=== PATIENT | female | born 1935 | race African-American/Black ===

== ENCOUNTER → 2017-09-29 | Outpatient (CLI) | payer MEDICARE, OTHER ==
--- NOTE | 2017-09-29 18:44 | WOMENS IMAGING REPORT ---
EXAM DESCRIPTION: 3D SCREENING MAMMO BILAT COMPLETED DATE/TIME: 09/29/2017 9:40 am REASON FOR STUDY: ROUTINE SCREENING; Z12.31 Z12.31 ENCNTR SCREEN MAMMOGRAM FOR MALIGNANT NEOPLASM O F [place] COMPARISON: Multiple since 2008 TECHNIQUE: Standard craniocaudal and mediolateral oblique views of each breast recorded using digita l acquisition and breast tomosynthesis. LIMITATIONS: None. FINDINGS: Findings present which are benign by mammographic criteria. No suspicious masses, calcifi cations or architectural distortion. Pertinent benign findings: Old post biopsy changes bilaterally. Stable breast parenchymal and arteri al vascular calcifications bilaterally Read with the assistance of CAD. .[facility] - R2 Cenova Version 1.3 .[facility] - R2 Cenova Version 1.3 .[facility] - R2 Cenova Version 2.4 .[facility] [place] R2 Cenova Version 2.4 .[facility] - R2 Lost Charge Card Clerk Version 9.2 Benign mammographic findings may include one or more of the following: Smooth masses, popcorn/rim/co arse calcifications, asymmetries, post-procedure changes, and lesions with long-standing stability. IMPRESSION: BENIGN MAMMOGRAPHIC FINDINGS. BIRADS 2 BREAST DENSITY: c. The breasts are heterogeneously dense, which may obscure small masses. BIRAD: 2 BENIGN FINDING(S) RECOMMENDATION: RECOMMENDATION: ROUTINE SCREENING Please continue yearly bilateral screening tomosynthesis in September 2018 COMMENT: The patient has been notified of the results by letter per [place] requirements. Additional no tification policies are in place for contacting patient with suspicious or incomplete findings. Quality ID #[id number]: The [place] [employer] recommends an annual screening mammogram for women aged 40 years or over. This facility utilizes a reminder system to ensure that all patients receive reminder letters, and/or direct phone calls for appointments. This includes reminders for routine scr eening mammograms, diagnostic mammograms, or other Breast Imaging Interventions when appropriate. Th is patient will be placed in the appropriate reminder system. The [place] [employer] (ACR) has developed recommendations for screening MRI of the breast s in certain patient populations, to be used in conjunction with mammography. Breast MRI surveillanc e may be appropriate for women with more than 20% lifetime risk of developing breast cancer as deter mined by genetic testing, significant family history of the disease, or history of mantle radiation f or Hodgkins Disease. ACR Practice Guidelines 2008. DBT Technology DBT is a type of tomographic mammography. With conventional mammography, overlapping breast tissue ma y make lesions difficult to detect, even with good compression. DBT uses an x-ray tube that rotates a round the breast, taking images at different angles. These images are then combined to create thin sl ices of the breast that the radiologist can view as a 3D reconstruction. The Hologic unit can perform full-field digital mammograms (2D imaging); or DBT (3D imaging); or both, in a combination mode that quickly performs both the mammogram and the tomosynthesis scan while the breast is still compressed. PQRS 6045F: Fluoroscopic imaging is not utilized for breast tomosynthesis. TECHNICAL DOCUMENTATION: FINDING NUMBER: (1) ASSESSMENT: (1) JOB ID: [id number] [employer]- All Rights Reserved
== END ==
LOC: WI 09:11
PROVIDERS: ATTEND Internal Medicine Geriatric Medicine
DX: Z12.31 Encounter for screening mammogram for malignant neoplasm of breast (principal)
CPT/HCPCS: 77063; G0202; 77067

== ENCOUNTER 2018-07-24 11:47 | Inpatient (IN) | payer MEDICARE, OTHER ==
[2018-07-24] MEDS ORDERED: FENTANYL CITRATE INJ/PF 100 MCG/2 ML AMPUL IV ONE ×2 (11:57→15:28)
--- NOTE | 2018-07-24 11:59 | ER Document Report ---
HPI - HPI Patient complains to provider of: Left ankle injury Onset: Just prior to arrival Onset/Duration: Sudden Quality of pain: Sharp Pain Level: 5 Context: Patient states she was walking in heels on uneven pavement when the heel got stuck in the concrete causing her to trip and fall. Patient with left ankle pain. Patient is not on any anticoagulants. Patient denies any other injury. Associated Symptoms: Other - Left ankle pain Exacerbated by: Movement Relieved by: Denies Similar symptoms previously: No Recently seen / treated by doctor: No - ROS ROS below otherwise negative: Yes Systems Reviewed and Negative: Yes All other systems reviewed and negative - NEURO Neurology: DENIES: Headache, Weakness - CARDIOVASCULAR Cardiovascular: DENIES: Chest pain - GASTROINTESTINAL Gastrointestinal: DENIES: Nausea, Patient vomiting - MUSCULOSKELETAL Musculoskeletal: REPORTS: Extremity pain, Swelling - DERM Skin Color: Normal Skin Problems: None <PAWAN JUNIOR - Last Filed: 07/24/18 17:18> Past Medical History - General Information source: Patient - Social History Smoking Status: Never Smoker Frequency of alcohol use: None Drug Abuse: None Family History: Reviewed & Not Pertinent - Past Medical History Cardiac Medical History: Reports: Hx Hypercholesterolemia, Hx Hypertension GI Medical History: Reports: Hx Gastroesophageal Reflux Disease Past Surgical History: Reports: Hx Hysterectomy, Hx Orthopedic Surgery <PAWAN JUNIOR - Last Filed: 07/24/18 17:18> Vertical Provider Document - CONSTITUTIONAL Agree With Documented VS: Yes Exam Limitations: No Limitations General Appearance: WD/WN, No Apparent Distress - INFECTION CONTROL TRAVEL OUTSIDE OF THE [place] IN LAST 30 DAYS: No - HEENT HEENT: Atraumatic, Normocephalic - NECK Neck: Normal Inspection - RESPIRATORY Respiratory: Breath Sounds Normal, No Respiratory Distress - CARDIOVASCULAR Cardiovascular: Regular Rate, Regular Rhythm Pulses: Normal: Dorsalis pedis - MUSCULOSKELETAL/EXTREMETIES Musculoskeletal/Extremeties: Tender - Left ankle tenderness with positive deformity, Edema. negative: Eccymosis - NEURO Level of Consciousness: Awake, Alert, Appropriate Motor/Sensory: No Motor Deficit - DERM Integumentary: Warm, Dry, No Rash <PAWAN JUNIOR - Last Filed: 07/24/18 17:18> Course - Vital Signs Vital signs: Temp Pulse Resp BP Pulse Ox 97.4 F 86 19 135/69 H 100 07/24/18 12:05 07/24/18 15:00 07/24/18 15:11 07/24/18 15:11 07/24/18 15:11 <JOSIAH HWANG - Last Filed: 07/24/18 15:34> - Re-evaluation Re-evalutation: 07/24/18 13:[address] Hwang who went to bedside to evaluate patient. Plans for conscious sedation for orthopedic reduction. 07/24/18 14:[address] rios regarding patient presentation. Agrees with plan for reduction at this time. Recommends offering the patient either to be discharged home with good supportive care with the plan to be scheduled for outpatient surgery, or recommends offering patient admission for definitive treatment if she does not have good support resources at home. 07/24/18 15:05 Dr Hwang to bedside for conscious sedation, patient given propofol per Dr. Hwang , ankle reduced with gentle traction and splint was immediately placed. Postreduction films were ordered. Dr. Hwang to recommend having Dr. Hansen admit patient 07/24/18 15:[address] Hansen who does agree to admit patient to 4th floor[address]. Hwang did review post reduction films, no change in treatment advised at this time 07/24/18 17:17 - Diagnostic Test Radiology reviewed: Reports reviewed <PAWAN JUNIOR - Last Filed: 07/24/18 17:18> Procedures - Conscious Sedation Conscious sedation Time started: 15:00 Time completed: 15:10 Consent obtained: Yes Indication: Left ankle reduction Emergent conditions applies.: E. - ASA Classification Airway Evaluation: Normal anatomy Mallampati Classification: Class 1 Used during procedure: Suction available, IV access obtained, Pulse ox on pt., patient monitor on pt. Medications administered: Diprivan I personally performed/intraservice time: Sedation, Procedure, 30 min or less Complications: No <JOSIAH HWANG - Last Filed: 07/24/18 15:34> Discharge <JOSIAH HWANG - Last Filed: 07/24/18 15:34> - Discharge Admitting Provider: Jade Unit Admitted: Medical Floor - 4th floor <PAWAN JUNIOR - Last Filed: 07/24/18 17:18> - Discharge Clinical Impression: Trimalleolar fracture of ankle, closed Qualifiers: Encounter type: initial encounter Laterality: left Qualified Code(s): S82.852A - Displaced trimalleolar fracture of left lower leg, initial encounter for closed fracture Condition: Stable Disposition: ADMITTED INPATIENT
--- NOTE | 2018-07-24 13:32 | RADIOLOGY REPORT (SQ) ---
EXAM DESCRIPTION: ANKLE LEFT COMPLETE COMPLETED DATE/TIME: 07/24/2018 1:17 pm REASON FOR STUDY: left ankle injury COMPARISON: None. EXAM PARAMETERS: NUMBER OF VIEWS: Three views. TECHNIQUE: AP, lateral and oblique radiographic images acquired of the left ankle. LIMITATIONS: None. FINDINGS: MINERALIZATION: Normal. BONES: Disruption of the ankle mortise with 1.5 cm of lateral displacement of the talus relative to t he tibia and 2.3 cm of posterior dislocation. There are fractures of the posterior tibial plafond , medial malleolar avulsion fracture, and distal fibular oblique fracture. JOINTS: Moderate effusion. SOFT TISSUES: Moderate soft tissue swelling. No radiopaque foreign body. OTHER: No other significant finding. IMPRESSION: Disruption of the ankle mortise with 1.5 cm of lateral displacement of the talus relativ e to the tibia and 2.3 cm of posterior dislocation. There are fractures of the posterior tibial plaf ond , medial malleolar avulsion fracture, and distal fibular oblique fracture. TECHNICAL DOCUMENTATION: JOB ID: [id number] [place]-72 2010 [employer]- All Rights Reserved Reading location - IP/workstation name: [email or web address]
[2018-07-24] MEDS ORDERED: NORMAL SALINE 1000 ML 1,000 ML IV ONE (14:30)
[2018-07-24] MEDS ORDERED: PROPOFOL INJ 200 MG/20 ML VIAL IV ONE ×2 (14:30→14:33)
--- NOTE | 2018-07-24 15:41 | RADIOLOGY REPORT (SQ) ---
EXAM DESCRIPTION: ANKLE LEFT COMPLETE COMPLETED DATE/TIME: 07/24/2018 3:20 pm REASON FOR STUDY: post reduction COMPARISON: Earlier exam same date EXAM PARAMETERS: NUMBER OF VIEWS: Three views. TECHNIQUE: AP, lateral and oblique radiographic images acquired of the left ankle. LIMITATIONS: None. FINDINGS: MINERALIZATION: Normal. BONES: Persistent disrupted ankle mortise with medial compartment measuring 1.7 cm wide. Persistent 9 mm posterior subluxation of the talus from the mortise. The distal fibular, medial malleolar and p osterior plafond fractures are again noted. JOINTS: Moderate effusion. SOFT TISSUES: Moderate soft tissue swelling. No radiopaque foreign body. OTHER: No other significant finding. IMPRESSION: Persistent disrupted ankle mortise with medial compartment measuring 1.7 cm wide. Persi stent 9 mm posterior subluxation of the talus from the mortise. The distal fibular, medial malleolar and posterior plafond fractures are again noted. TECHNICAL DOCUMENTATION: JOB ID: [id number] [place]-72 2010 [employer]- All Rights Reserved Reading location - IP/workstation name: [email or web address]
--- NOTE | 2018-07-24 17:23 | RADIOLOGY REPORT (SQ) ---
EXAM DESCRIPTION: CHEST SINGLE VIEW COMPLETED DATE/TIME: 07/24/2018 3:53 pm REASON FOR STUDY: preop COMPARISON: None. EXAM PARAMETERS: NUMBER OF VIEWS: One view. TECHNIQUE: Single frontal radiographic view of the chest acquired. RADIATION DOSE: NA LIMITATIONS: None. FINDINGS: LUNGS AND PLEURA: No opacities, masses or pneumothorax. No pleural effusion. MEDIASTINUM AND HILAR STRUCTURES: No masses. Contour normal. HEART AND VASCULAR STRUCTURES: Heart normal in size. Normal vasculature. BONES: No acute findings. HARDWARE: None in the chest. OTHER: No other significant finding. IMPRESSION: NO ACUTE RADIOGRAPHIC FINDING IN THE CHEST. TECHNICAL DOCUMENTATION: JOB ID: [id number] [place]-72 2010 [employer] All Rights Reserved Reading location - IP/workstation name: [email or web address]
[2018-07-24 17:46] LABS: ABSOLUTE EOSINOPHILS # (AUTO) 0.1 10^3/uL (0.0-0.6); ABSOLUTE MONOCYTES (AUTO) 0.6 10^3/uL (0.1-1.4); ABSOLUTE NEUT (AUTO) 5.7 10^3/uL (1.7-8.2); BASOPHILS % (AUTO) 0.3 % (0-2); EOSINOPHILS % (AUTO) 0.7 % (0-6); HEMATOCRIT 36.1 % (36.0-47.0); LYMPHOCYTES % (AUTO) 23.7 % (13-45); MEAN CORPUSCULAR HEMOGLOBIN 29.7 pg (27.0-33.4); MEAN CORPUSCULAR HGB CONC 33.2 g/dL (32.0-36.0); MEAN CORPUSCULAR VOLUME 89 fl (80-97); MONOCYTES % (AUTO) 6.8 % (3-13); PLATELET COUNT 373 10^3/uL (150-450); RED BLOOD COUNT 4.03 10^6/uL (3.72-5.28); SEGMENTED NEUTROPHILS % (AUTO) 68.5 % (42-78); TOTAL CELLS COUNTED % (AUTO) 100 %; WHITE BLOOD COUNT 8.3 10^3/uL (4.0-10.5)
[2018-07-24] MEDS ORDERED: NORMAL SALINE 1000 ML 1,000 ML IV PRN (17:49)
[2018-07-24 18:04] LABS: ANION GAP 7 (5-19); BLOOD UREA NITROGEN 17 mg/dL (7-20); CARBON DIOXIDE 31 mmol/L (22-30); CHLORIDE 106 mmol/L (98-107); GLUCOSE 106 mg/dL (75-110); POTASSIUM 3.9 mmol/L (3.6-5.0); SODIUM 144.4 mmol/L (137-145)
--- NOTE | 2018-07-24 18:13 | PDOC H&P ---
History of Present Illness Admission Date/PCP: 07/24/18 15:32 JANNETTE JACKSON History of Present Illness: MINH FRAGOSO is a 82 year old female known to my practice who presented to the ED with incident of fall outside her home and sustained left aknle fracture. She denied any preceding chest pain, palpitation, dizziness or light headedness. She described incident as missed step into a broken pavement concrete and lost her balance with subsequent fall. She denied loss of consciousness. There was subsequent associated difficulty with walking. Her initial evaluation in the Ed was remarkable for compound fracture involving the left ankle joint. She had closed reduction in the ED with Fentanyl administration with application of external immobilizer. She was advised hospitalization for further evaluation and management with orthopod input. Her morbidities include hypertension, hyperlipidemia, GERD, Osteoarthritis, and obesity. Past Medical History Cardiac Medical History: Reports: Hyperlipidema, Hypertension GI Medical History: Reports: Gastroesophageal Reflux Disease Past Surgical History Past Surgical History: Reports: Hysterectomy, Orthopedic Surgery Social History Smoking Status: Never Smoker Family History Family History: Reviewed & Not Pertinent Parental Family History Reviewed: Yes Children Family History Reviewed: Yes Sibling(s) Family History Reviewed.: Yes Medication/Allergy Allergies/Adverse Reactions: No Known Allergies Allergy (Verified 07/24/18 12:06) Review of Systems Constitutional: ABSENT: chills, fever(s), headache(s), weight gain, weight loss Eyes: ABSENT: visual disturbances Ears: PRESENT: hearing changes Nose, Mouth, and Throat: ABSENT: as per HPI, headache(s), mouth pain, sore throat, vertigo, other Cardiovascular: ABSENT: chest pain, dyspnea on exertion, edema, orthropnea, palpitations Respiratory: ABSENT: cough, hemoptysis Gastrointestinal: ABSENT: abdominal pain, constipation, diarrhea, hematemesis, hematochezia, nausea, vomiting Genitourinary: ABSENT: dysuria, hematuria Musculoskeletal: PRESENT: other - Left ankle joint pain. ABSENT: joint swelling Integumentary: PRESENT: other - dressing over left lower extremity Neurological: ABSENT: abnormal gait, abnormal speech, confusion, dizziness, focal weakness, syncope Psychiatric: ABSENT: anxiety, depression, homidical ideation, suicidal ideation Endocrine: ABSENT: cold intolerance, heat intolerance, polydipsia, polyuria Hematologic/Lymphatic: ABSENT: easy bleeding, easy bruising, lymphadenopathy Allergic/Immunologic: ABSENT: seasonal rhinorrhea Physical Exam Vital Signs: Temp Pulse Resp BP Pulse Ox 97.4 F 81 18 135/69 H 100 07/24/18 12:05 07/24/18 16:28 07/24/18 16:28 07/24/18 16:28 07/24/18 16:28 Intake & Output 07/23/18 07/24/18 07/25/18 06:59 06:59 06:59 Intake Total 1000 Balance 1000 General appearance: PRESENT: mild distress - due to left ankle pain, obese Head exam: PRESENT: atraumatic, normocephalic Eye exam: PRESENT: conjunctiva pink, EOMI, PERRLA. ABSENT: scleral icterus Ear exam: PRESENT: normal external ear exam Mouth exam: PRESENT: moist, neck supple, tongue midline. ABSENT: laceration Neck exam: PRESENT: full ROM. ABSENT: carotid bruit, JVD, lymphadenopathy, thyromegaly Respiratory exam: PRESENT: clear to auscultation heike Cardiovascular exam: PRESENT: RRR. ABSENT: diastolic murmur, rubs, systolic murmur Pulses: PRESENT: +1 pedal pulses bilateral, other - limited evaluation of left leg and foot Vascular exam: PRESENT: normal capillary refill. ABSENT: pallor GI/Abdominal exam: PRESENT: normal bowel sounds, soft. ABSENT: distended, guarding, mass, organolmegaly, rebound, tenderness Rectal exam: PRESENT: deferred Extremities exam: PRESENT: pedal edema, other - left ankle joint in external immobilizer due to acute fracture Musculoskeletal exam: PRESENT: tenderness - left ankle joint region. ABSENT: ambulatory - presently Neurological exam: PRESENT: alert, awake, oriented to person, oriented to place , oriented to time, oriented to situation, CN II-XII grossly intact. ABSENT: motor sensory deficit Psychiatric exam: PRESENT: appropriate affect, normal mood. ABSENT: homicidal ideation, suicidal ideation Skin exam: PRESENT: dry, warm Results Laboratory Results: 07/24/18 17:30 07/24/18 17:30 WBC 8.3 RBC 4.03 Hgb 12.0 Hct 36.1 MCV 89 MCH 29.7 MCHC 33.2 RDW 14.0 Plt Count 373 Seg Neutrophils % 68.5 Lymphocytes % 23.7 Monocytes % 6.8 Eosinophils % 0.7 Basophils % 0.3 Absolute Neutrophils 5.7 Absolute Lymphocytes 2.0 Absolute Monocytes 0.6 Absolute Eosinophils 0.1 Absolute Basophils 0.0 Impressions: Ankle X-Ray 07/24/18 15:05 IMPRESSION: Persistent disrupted ankle mortise with medial compartment measuring 1.7 cm wide. Persistent 9 mm posterior subluxation of the talus from the mortise. The distal fibular, medial malleolar and posterior plafond fractures are again noted. Chest X-Ray 07/24/18 15:24 IMPRESSION: NO ACUTE RADIOGRAPHIC FINDING IN THE CHEST. Assessment & Plan - Diagnosis (1) Fall (on)(from) sidewalk curb, initial encounter Qualifiers: Encounter type: initial encounter Qualified Code(s): W10.1XXA - Fall (on)( from) sidewalk curb, initial encounter Is this a current diagnosis for this admission?: Yes Plan: See admitting attending physician orders. (2) Trimalleolar fracture of ankle, closed Qualifiers: Encounter type: initial encounter Laterality: left Qualified Code(s): S82.852A - Displaced trimalleolar fracture of left lower leg, initial encounter for closed fracture Is this a current diagnosis for this admission?: Yes Plan: See admitting attending physician orders. I will request orthopedic consult with Dr. Gonzales for further intervention. (3) HTN (hypertension) Qualifiers: Hypertension type: essential hypertension Qualified Code(s): I10 - Essential (primary) hypertension Is this a current diagnosis for this admission?: Yes Plan: See admitting attending physician orders. (4) HLD (hyperlipidemia) Qualifiers: Hyperlipidemia type: unspecified Qualified Code(s): E78.5 - Hyperlipidemia , unspecified Is this a current diagnosis for this admission?: Yes Plan: See admitting attending physician orders. (5) GERD (gastroesophageal reflux disease) Qualifiers: Esophagitis presence: without esophagitis Qualified Code(s): K21.9 - Gastro -esophageal reflux disease without esophagitis Is this a current diagnosis for this admission?: Yes Plan: See admitting attending physician orders. (6) Osteoarthritis involving multiple joints on both sides of body Is this a current diagnosis for this admission?: Yes Plan: See admitting attending physician orders. (7) Obesity (BMI 30-39.9) Is this a current diagnosis for this admission?: Yes Plan: See admitting attending physician orders. - Time Time Spent: 50 to 70 Minutes Medications reviewed and adjusted accordingly: Yes Anticipated discharge: Home with Homehealth Within: Other - Inpatient Certification Based on my medical assessment, after consideration of the patient's comorbidities, presenting symptoms, or acuity I expect that the services needed warrant INPATIENT care.: Yes I certify that my determination is in accordance with my understanding of Medicare's requirements for reasonable and necessary INPATIENT services [42 CFR 412.3e].: Yes Medical Necessity: Need Close Monitoring Due to Risk of Patient Decompensation, Need For IV Fluids, Need For Continuous Telemetry Monitoring, Need for Pain Control, Need for Surgery, Risk of Complication if Not Cared For in Hospital Post Hospital Care: D/C [employer] Documentation - Plan Summary Plan Summary: See admitting attending physician orders.
[2018-07-24] MEDS ORDERED: MORPHINE SULFATE 10 MG/ML INJ ONE (19:11)
--- NOTE | 2018-07-24 19:47 | EKG REPORT ---
SEVERITY:- ABNORMAL ECG - SINUS RHYTHM FIRST DEGREE AV BLOCK : Confirmed by: Carolyn Bethea MD 24-Jul-2018 19:46:14
[2018-07-24] MEDS ORDERED: LUBIPROSTONE 8 MCG CAPSULE PO PRN (20:42)
[2018-07-24] MEDS ORDERED: BENZONATATE 100 MG CAPSULE PO PRN (20:44)
[2018-07-24] MEDS ORDERED: ACETAMINOPHEN 325 MG TABLET PO PRN (20:48)
[2018-07-24] MEDS: ATORVASTATIN CALCIUM 20 MG TABLET PO SCH (21:54)
[2018-07-25] MEDS ORDERED: LANSOPRAZOLE 30 MG TAB.RAP.DR PO SCH (06:00)
--- NOTE | 2018-07-25 07:16 | PDOC CONSULTATION ---
Consultation Consult Date: 07/25/18 Consult reason:: Left ankle fracture History of Present Illness Admission Date/PCP: 07/24/18 15:32 JANNETTE RENETTA History of Present Illness: MINH FRAGOSO is a 82 year old female Patient is an 82-year-old black female community ambulator who tripped and fell and sustained a left ankle injury. She was brought to the emergency room where a displaced bimalleolar ankle fracture was identified radiographically. It was closed reduced in the emergency room and the patient is admitted for treatment of the fracture. Past Medical History Cardiac Medical History: Reports: Hyperlipidema, Hypertension GI Medical History: Reports: Gastroesophageal Reflux Disease Past Surgical History Past Surgical History: Reports: Hysterectomy, Orthopedic Surgery - Left knee arthroplasty by [facility] Social History Information Source: Patient, [facility] Smoking Status: Former Smoker Frequency of Alcohol Use: None Drugs: None Family History Family History: Reviewed & Not Pertinent Parental Family History Reviewed: No Children Family History Reviewed: No Sibling(s) Family History Reviewed.: No Medication/Allergy Allergies/Adverse Reactions: No Known Allergies Allergy (Verified 07/24/18 12:06) Review of Systems All systems: as per [facility] Physical Exam Vital Signs: Temp Pulse Resp BP Pulse Ox 37.1 C 65 17 167/58 H 100 07/24/18 23:00 07/25/18 07:00 07/24/18 23:00 07/24/18 23:00 07/24/18 23:00 Intake & Output 07/24/18 07/25/18 07/26/18 06:59 06:59 06:59 Intake Total 1000 Balance 1000 General appearance: PRESENT: no acute distress, mild distress Head exam: PRESENT: normocephalic Respiratory exam: PRESENT: unlabored Cardiovascular exam: PRESENT: RRR Vascular exam: PRESENT: normal capillary refill GI/Abdominal exam: PRESENT: soft Rectal exam: PRESENT: deferred Musculoskeletal exam: PRESENT: other - Left lower extremity immobilized in a posterior splint. There is brisk capillary refill to the digits. Sensory examination is intact to light touch. Neurological exam: PRESENT: alert, awake, oriented to person, oriented to place , oriented to time, oriented to situation, CN II-XII grossly intact. ABSENT: motor sensory deficit Psychiatric exam: PRESENT: appropriate affect, normal mood. ABSENT: homicidal ideation, suicidal ideation Skin exam: PRESENT: dry, intact, warm. ABSENT: cyanosis, rash Results Laboratory Results: 07/24/18 17:30 07/24/18 17:35 07/24/18 07/24/18 17:30 17:35 WBC 8.3 RBC 4.03 Hgb 12.0 Hct 36.1 MCV 89 MCH 29.7 MCHC 33.2 RDW 14.0 Plt Count 373 Seg Neutrophils % 68.5 Lymphocytes % 23.7 Monocytes % 6.8 Eosinophils % 0.7 Basophils % 0.3 Absolute Neutrophils 5.7 Absolute Lymphocytes 2.0 Absolute Monocytes 0.6 Absolute Eosinophils 0.1 Absolute Basophils 0.0 Sodium 144.4 Potassium 3.9 Chloride 106 Carbon Dioxide 31 H Anion Gap 7 BUN 17 Creatinine 0.69 Est GFR ( Amer) > 60 Est GFR (Non-Af Amer) > 60 Glucose 106 Calcium 10.0 Impressions: Ankle X-Ray 07/24/18 15:05 IMPRESSION: Persistent disrupted ankle mortise with medial compartment measuring 1.7 cm wide. Persistent 9 mm posterior subluxation of the talus from the mortise. The distal fibular, medial malleolar and posterior plafond fractures are again noted. Chest X-Ray 07/24/18 15:24 IMPRESSION: NO ACUTE RADIOGRAPHIC FINDING IN THE CHEST. Status: Imported from PACS Assessment & Plan - Diagnosis (1) Trimalleolar fracture of ankle, closed Qualifiers: Encounter type: initial encounter Laterality: left Qualified Code(s): S82.852A - Displaced trimalleolar fracture of left lower leg, initial encounter for closed fracture Is this a current diagnosis for this admission?: Yes Plan: 82-year-old black female community ambulator with a left unstable trimalleolar ankle fracture that would be best served with an open reduction internal fixation. Tentative plan to proceed with this today under choice anesthesia. Anticipate discharge to a long-term facility - Time Time Spent: 50 to 70 Minutes Anticipated discharge: SNF Within: Other
[2018-07-25] MEDS ORDERED: RINGERS SOLUTION,LACTATED 1,000 ML IV PRN ×2 (08:10→14:34)
[2018-07-25] MEDS ORDERED: CEFAZOLIN 2 GM/D5W RTU 2 GM/50 ML RTUPB IV PRN (08:11)
[2018-07-25] MEDS: VALSARTAN 160 MG TABLET PO SCH (09:18)
[2018-07-25] MEDS: HYDROCHLOROTHIAZIDE 12.5 MG TABLET PO SCH (09:18)
[2018-07-25] MEDS: AMLODIPINE BESYLATE 10 MG TABLET PO SCH (09:18)
[2018-07-25] MEDS: LANSOPRAZOLE 15 MG TAB.RAP.DR PO SCH (09:19)
[2018-07-25] MEDS: MULTIVITAMIN TABLET PO SCH (09:19)
[2018-07-25] MEDS ORDERED: ASPIRIN 81 MG TABLET, CHEWABLE PO SCH (10:00)
[2018-07-25] MEDS: MORPHINE SULFATE 10 MG/ML INJ IV PRN ×2 (11:52)
[2018-07-25] MEDS ORDERED: BUPIVACAINE HCL/DEX-WATER/PF 15 MG/2 ML AMPULE ONE (12:06)
[2018-07-25] MEDS ORDERED: FENTANYL CITRATE INJ/PF 100 MCG/2 ML AMPUL ONE (12:07)
[2018-07-25] MEDS ORDERED: MIDAZOLAM 2 MG/2 ML INJ ONE (12:07)
[2018-07-25] MEDS ORDERED: PROPOFOL INJ 200 MG/20 ML VIAL IV ONE ×2 (12:07→12:42)
[2018-07-25] MEDS ORDERED: CEFAZOLIN INJ 1 GM VIAL ONE (12:38)
[2018-07-25] MEDS ORDERED: BUPIVACAINE HCL 0.5%-EPI 1:200000 INJ/PF 30 ML VIAL ONE (13:26)
--- NOTE | 2018-07-25 13:37 | Physician Advisory Note ---
Physician Advisor ProgressNote .: Pursuant to the plan for Nadine Magana, I have reviewed the medical record for this patient. Physician Advisor Statement: Status: 82yo Medicare pt w/unstable ankle fx, needs surgery, & surgeon expects her post-op to require ongoing PT for at least 2 days more that will need to continue at SNF level after d/c, along w/ continued prn IV pain meds she has already required 2x today in just 12 hrs - highly likely to continue to need this as well. - Appropriate for Inpt status. CK
--- NOTE | 2018-07-25 13:51 | Operative Report ---
Operative Report DATE OF SURGERY: 07/25/18 PREOPERATIVE DIAGNOSIS: Left trimalleolar ankle fracture with syndesmosis disruption OPERATION: Open reduction internal fixation left ankle fracture with repair of the syndesmosis as well as the posterior malleolus SURGEON: CHERYL BLACKBURN ANESTHESIA: Spinal ESTIMATED BLOOD LOSS: Minimal PROCEDURE: With the patient supine and operative table the left lower extremities prepped and draped in sterile fashion. The limb was elevated for exsanguination tourniquet inflated 280 torr. Longitudinal incisions made over the lateral distal fibula and sharp dissection was carried incision through the periosteum. The periosteum was elevated. The fracture is visualized and reduced under direct visualization. Is held in place with a lobster claw clamp and a subsequent [place] titanium distal fibula plate is applied to the lateral surface. 3 screws were placed proximally and 3 screws were placed distally. A lobster claw clamp was removed. Subsequently 2 screws were placed across the fibula as well as the syndesmosis into the tibia for syndesmosis repair. Lastly a single cannulated 4 mm screw was placed. A 4 to hold the posterior malleolus fracture. This point the tourniquet was deflated. The wound was irrigated with bulb lavage. Is closed in layers interrupted Vicryl followed by [place]. A sterile compressive dressing and posterior plaster splint were applied and the patient's return to PACU in satisfactory condition.
[2018-07-25] MEDS ORDERED: PROMETHAZINE HCL INJ 25 MG/1 ML VIAL IV PRN ×2 (13:54)
[2018-07-25] MEDS ORDERED: MEPERIDINE HCL/PF INJ 25 MG/1 ML DISP.SYRIN IV PRN (13:54)
[2018-07-25] MEDS ORDERED: MORPHINE SULFATE 10 MG/ML INJ IV PRN ×2 (13:54→14:36)
[2018-07-25] MEDS ORDERED: OXYCODONE-ACETAMINOPHEN 5-325 MG TABLET PO PRN ×2 (13:54)
[2018-07-25] MEDS ORDERED: DIPHENHYDRAMINE HCL 50 MG/ML VIAL IV PRN (13:54)
[2018-07-25] MEDS ORDERED: FENTANYL CITRATE INJ/PF 100 MCG/2 ML AMPUL IV PRN ×3 (13:54)
[2018-07-25] MEDS ORDERED: ONDANSETRON 4 MG TAB.RAPDIS PO PRN (14:37)
--- NOTE | 2018-07-25 14:44 | RADIOLOGY REPORT (SQ) ---
EXAM DESCRIPTION: KNEE LEFT 2 VIEWS; NO CHG FLUORO COMPLETED DATE/TIME: 07/25/2018 2:21 pm REASON FOR STUDY: ORIF LEFT KNEE ASST WITH FLUORO IN OR COMPARISON: 07/24/2018 left ankle films FLUOROSCOPY TIME: 0.4 minutes 4 digital C-arm images saved to PACS. TECHNIQUE: Intra-operative images acquired during surgical procedure to evaluate progress. NUMBER OF IMAGES: 4 digital C-arm images LIMITATIONS: None. FINDINGS: Intra procedural imaging and fluoro during ORIF left distal fibular fracture in good align ment. Syndesmosis screws. Please see the operative report for further details IMPRESSION: ORIF left ankle fluoro and C-arm images COMMENT: Quality ID [id number]: Final reports for procedures using fluoroscopy that document radiation exp osure indices, or exposure time and number of fluorographic images (if radiation exposure indices are not available) Please consult full operative report of the attending physician for description of the procedure. TECHNICAL DOCUMENTATION: JOB ID: [id number] [employer]- All Rights Reserved Reading location - IP/workstation name: [facility]
--- NOTE | 2018-07-25 14:44 | RADIOLOGY REPORT (SQ) ---
EXAM DESCRIPTION: KNEE LEFT 2 VIEWS; NO CHG FLUORO COMPLETED DATE/TIME: 07/25/2018 2:21 pm REASON FOR STUDY: ORIF LEFT KNEE ASST WITH FLUORO IN OR COMPARISON: 07/24/2018 left ankle films FLUOROSCOPY TIME: 0.4 minutes 4 digital C-arm images saved to PACS. TECHNIQUE: Intra-operative images acquired during surgical procedure to evaluate progress. NUMBER OF IMAGES: 4 digital C-arm images LIMITATIONS: None. FINDINGS: Intra procedural imaging and fluoro during ORIF left distal fibular fracture in good align ment. Syndesmosis screws. Please see the operative report for further details IMPRESSION: ORIF left ankle fluoro and C-arm images COMMENT: Quality ID [id number]: Final reports for procedures using fluoroscopy that document radiation exp osure indices, or exposure time and number of fluorographic images (if radiation exposure indices are not available) Please consult full operative report of the attending physician for description of the procedure. TECHNICAL DOCUMENTATION: JOB ID: [id number] [employer]- All Rights Reserved Reading location - IP/workstation name: [facility]
--- NOTE | 2018-07-25 16:52 | PDOC PROGRESS REPORT ---
Subjective Progress Note for:: 07/25/18 Subjective:: Patient reported satisfactory pain control presently. She is s/p ORIF left ankle fracture with repair of the syndesmosis and posterior malleolus by the orthopod team. No chest pain or difficulty with breathing. No fever or chills. No nausea, vomiting or abdominal pain. Reason For Visit: S/P ACCIDENTAL FALL OUTSIDE OF HOME LEFT ANK;LE Physical Exam Vital Signs: Temp Pulse Resp BP Pulse Ox 97.9 F 74 16 122/61 98 07/25/18 15:17 07/25/18 15:17 07/25/18 15:17 07/25/18 15:17 07/25/18 15:17 Intake & Output 07/24/18 07/25/18 07/26/18 06:59 06:59 06:59 Intake Total 1500 3200 Output Total 25 Balance 1500 3175 Weight 105.2 kg General appearance: PRESENT: no acute distress, obese Head exam: PRESENT: atraumatic, normocephalic Eye exam: PRESENT: conjunctiva pink, EOMI, PERRLA. ABSENT: scleral icterus Ear exam: PRESENT: normal external ear exam Mouth exam: PRESENT: moist Respiratory exam: PRESENT: clear to auscultation heike Cardiovascular exam: PRESENT: RRR. ABSENT: diastolic murmur, rubs, systolic murmur Vascular exam: ABSENT: pallor GI/Abdominal exam: PRESENT: normal bowel sounds, soft. ABSENT: distended, guarding, mass, organolmegaly, rebound, tenderness Extremities exam: PRESENT: other - left ankle surgical site ok.. ABSENT: pedal edema Neurological exam: PRESENT: alert, awake, oriented to person, oriented to place , oriented to time, oriented to situation, CN II-XII grossly intact. ABSENT: motor sensory deficit Psychiatric exam: PRESENT: appropriate affect, normal mood. ABSENT: homicidal ideation, suicidal ideation Skin exam: PRESENT: dry, warm Results Laboratory Results: 07/24/18 17:30 07/24/18 17:35 07/24/18 07/24/18 17:30 17:35 WBC 8.3 RBC 4.03 Hgb 12.0 Hct 36.1 MCV 89 MCH 29.7 MCHC 33.2 RDW 14.0 Plt Count 373 Seg Neutrophils % 68.5 Lymphocytes % 23.7 Monocytes % 6.8 Eosinophils % 0.7 Basophils % 0.3 Absolute Neutrophils 5.7 Absolute Lymphocytes 2.0 Absolute Monocytes 0.6 Absolute Eosinophils 0.1 Absolute Basophils 0.0 Sodium 144.4 Potassium 3.9 Chloride 106 Carbon Dioxide 31 H Anion Gap 7 BUN 17 Creatinine 0.69 Est GFR ( Amer) > 60 Est GFR (Non-Af Amer) > 60 Glucose 106 Calcium 10.0 Impressions: Ankle X-Ray 07/24/18 15:05 IMPRESSION: Persistent disrupted ankle mortise with medial compartment measuring 1.7 cm wide. Persistent 9 mm posterior subluxation of the talus from the mortise. The distal fibular, medial malleolar and posterior plafond fractures are again noted. Chest X-Ray 07/24/18 15:24 IMPRESSION: NO ACUTE RADIOGRAPHIC FINDING IN THE CHEST. Fluoroscopy 07/25/18 00:00 IMPRESSION: ORIF left ankle fluoro and C-arm images Knee X-Ray 07/25/18 00:00 IMPRESSION: ORIF left ankle fluoro and C-arm images Assessment & Plan - Diagnosis (1) Fall (on)(from) sidewalk curb, initial encounter Qualifiers: Encounter type: initial encounter Qualified Code(s): W10.1XXA - Fall (on)( from) sidewalk curb, initial encounter Is this a current diagnosis for this admission?: Yes Plan: Continue current medical management. (2) Trimalleolar fracture of ankle, closed Qualifiers: Encounter type: initial encounter Laterality: left Qualified Code(s): S82.852A - Displaced trimalleolar fracture of left lower leg, initial encounter for closed fracture Is this a current diagnosis for this admission?: Yes Plan: s/p ORIF left ankle fracture with repair of the syndesmosis and posterior malleolus, I will discuss further management with orthopod team. Patient expressed wish for home physical therapy due to inability to drive herself and no available help to assist if outpatient physical therapy is recommended. Other consideration in acute SNF rehabilitation placement. (3) HTN (hypertension) Qualifiers: Hypertension type: essential hypertension Qualified Code(s): I10 - Essential (primary) hypertension Is this a current diagnosis for this admission?: Yes Plan: Continue current medication management. (4) HLD (hyperlipidemia) Qualifiers: Hyperlipidemia type: unspecified Qualified Code(s): E78.5 - Hyperlipidemia , unspecified Is this a current diagnosis for this admission?: Yes Plan: Continue current medication management. (5) GERD (gastroesophageal reflux disease) Qualifiers: Esophagitis presence: without esophagitis Qualified Code(s): K21.9 - Gastro -esophageal reflux disease without esophagitis Is this a current diagnosis for this admission?: Yes Plan: Continue current medication management. (6) Osteoarthritis involving multiple joints on both sides of body Is this a current diagnosis for this admission?: Yes Plan: Continue current medication management. (7) Obesity (BMI 30-39.9) Is this a current diagnosis for this admission?: Yes Plan: Continue current medication management. - Time Time Spent with patient: 25-34 minutes Medications reviewed and adjusted accordingly: Yes Anticipated discharge: Home with Homehealth Within: Other - Inpatient Certification Based on my medical assessment, after consideration of the patient's comorbidities, presenting symptoms, or acuity I expect that the services needed warrant INPATIENT care.: Yes I certify that my determination is in accordance with my understanding of Medicare's requirements for reasonable and necessary INPATIENT services [42 CFR 412.3e].: Yes Medical Necessity: Need Close Monitoring Due to Risk of Patient Decompensation, Need For IV Fluids, Need For Continuous Telemetry Monitoring, Need for Pain Control, Need for Surgery, Risk of Complication if Not Cared For in Hospital Post Hospital Care: D/C Academic Services Coordinator Documentation - Plan Summary Plan Summary: Continue current pain management. Maintain on all other current medication management. Obtain CBC with diff and CMP in am.
[2018-07-25] MEDS: CEFAZOLIN 2 GM/D5W RTU 2 GM/50 ML RTUPB IV SCH (22:46)
[2018-07-25] MEDS: OXYCODONE HCL IR 5 MG TABLET PO PRN (22:46)
[2018-07-25] MEDS: ATORVASTATIN CALCIUM 20 MG TABLET PO SCH (22:47)
[2018-07-26] MEDS: CEFAZOLIN 2 GM/D5W RTU 2 GM/50 ML RTUPB IV SCH (06:02)
--- NOTE | 2018-07-26 07:19 | PDOC PROGRESS REPORT ---
Subjective Progress Note for:: 07/26/18 Reason For Visit: S/P ACCIDENTAL FALL OUTSIDE OF HOME LEFT ARIADNE 82-year-old black female postop day 1 from an open reduction internal fixation of a left trimalleolar ankle fracture Physical Exam Vital Signs: Temp Pulse Resp BP Pulse Ox 37.1 C 91 17 147/64 H 97 07/26/18 03:36 07/26/18 03:36 07/26/18 03:36 07/26/18 03:36 07/26/18 03:36 Intake & Output 07/25/18 07/26/18 07/27/18 06:59 06:59 06:59 Intake Total 1500 5089 Output Total 25 Balance 1500 5064 Weight 105.2 kg 102.9 kg General appearance: PRESENT: no acute distress, obese, well-nourished Head exam: PRESENT: normocephalic Respiratory exam: PRESENT: unlabored Cardiovascular exam: PRESENT: RRR Extremities exam: PRESENT: other - Left lower extremity dressing clean dry and intact. Distal neurovascular examination is intact. Results Laboratory Results: 07/24/18 17:30 07/24/18 17:35 Impressions: Ankle X-Ray 07/24/18 15:05 IMPRESSION: Persistent disrupted ankle mortise with medial compartment measuring 1.7 cm wide. Persistent 9 mm posterior subluxation of the talus from the mortise. The distal fibular, medial malleolar and posterior plafond fractures are again noted. Chest X-Ray 07/24/18 15:24 IMPRESSION: NO ACUTE RADIOGRAPHIC FINDING IN THE CHEST. Fluoroscopy 07/25/18 00:00 IMPRESSION: ORIF left ankle fluoro and C-arm images Knee X-Ray 07/25/18 00:00 IMPRESSION: ORIF left ankle fluoro and C-arm images Assessment & Plan - Diagnosis (1) Trimalleolar fracture of ankle, closed Qualifiers: Encounter type: initial encounter Laterality: left Qualified Code(s): S82.852A - Displaced trimalleolar fracture of left lower leg, initial encounter for closed fracture Is this a current diagnosis for this admission?: Yes Plan: Plan to mobilize with physical therapy and a touchdown weightbearing restriction on the left lower extremity - Time Time Spent with patient: 15-24 minutes Anticipated discharge: Other Within: Other
[2018-07-26 07:36] LABS: ABSOLUTE LYMPHOCYTES (AUTO) 1.6 10^3/uL (0.5-4.7); ABSOLUTE MONOCYTES (AUTO) 0.7 10^3/uL (0.1-1.4); ABSOLUTE NEUT (AUTO) 8.3 10^3/uL (1.7-8.2); BASOPHILS % (AUTO) 0.3 % (0-2); EOSINOPHILS % (AUTO) 0.1 % (0-6); HEMOGLOBIN 11.5 g/dL (12.0-15.5); LYMPHOCYTES % (AUTO) 15.2 % (13-45); MEAN CORPUSCULAR HEMOGLOBIN 29.6 pg (27.0-33.4); MEAN CORPUSCULAR HGB CONC 33.6 g/dL (32.0-36.0); MEAN CORPUSCULAR VOLUME 88 fl (80-97); MONOCYTES % (AUTO) 6.8 % (3-13); PLATELET COUNT 325 10^3/uL (150-450); RED BLOOD COUNT 3.87 10^6/uL (3.72-5.28); SEGMENTED NEUTROPHILS % (AUTO) 77.6 % (42-78); TOTAL CELLS COUNTED % (AUTO) 100 %; WHITE BLOOD COUNT 10.7 10^3/uL (4.0-10.5)
[2018-07-26 08:06] LABS: ANION GAP 10 (5-19); BLOOD UREA NITROGEN 10 mg/dL (7-20); CALCIUM 10.3 mg/dL (8.4-10.2); CARBON DIOXIDE 30 mmol/L (22-30); CHLORIDE 102 mmol/L (98-107); GLUCOSE 132 mg/dL (75-110); POTASSIUM 3.3 mmol/L (3.6-5.0); SODIUM 142.3 mmol/L (137-145)
[2018-07-26] MEDS: OXYCODONE HCL IR 5 MG TABLET PO PRN ×2 (09:19→21:45)
[2018-07-26] MEDS: LANSOPRAZOLE 15 MG TAB.RAP.DR PO SCH (09:19)
[2018-07-26] MEDS: MULTIVITAMIN TABLET PO SCH (09:19)
[2018-07-26] MEDS: HYDROCHLOROTHIAZIDE 12.5 MG TABLET PO SCH (09:20)
[2018-07-26] MEDS: VALSARTAN 160 MG TABLET PO SCH (09:20)
[2018-07-26] MEDS: ASPIRIN 81 MG TABLET, ENT COATED PO SCH (09:20)
[2018-07-26] MEDS: AMLODIPINE BESYLATE 10 MG TABLET PO SCH (09:20)
[2018-07-26] MEDS ORDERED: ENOXAPARIN SODIUM INJ 40 MG/0.4 ML DISP.SYRIN SUBCUT SCH (10:00)
--- NOTE | 2018-07-26 18:21 | PDOC PROGRESS REPORT ---
Subjective Progress Note for:: 07/26/18 Subjective:: Patient reported satisfactory pain control on current medication management. Participating in physical therapy session. Not looking forward to SNF rehabilitation. No chest pain, shortness of breath. nausea, or vomiting. No fever or chills. Reason For Visit: S/P ACCIDENTAL FALL OUTSIDE OF HOME LEFT ANK;LE Physical Exam Vital Signs: Temp Pulse Resp BP Pulse Ox 98.7 F 91 17 147/64 H 97 07/26/18 03:36 07/26/18 03:36 07/26/18 03:36 07/26/18 03:36 07/26/18 03:36 Intake & Output 07/25/18 07/26/18 07/27/18 06:59 06:59 06:59 Intake Total 1500 5089 Output Total 25 Balance 1500 5064 Weight 105.2 kg 102.9 kg Physical Exam: General appearance: PRESENT: no acute distress, obese Head exam: PRESENT: atraumatic, normocephalic Eye exam: PRESENT: conjunctiva pink, EOMI, PERRLA. ABSENT: scleral icterus Ear exam: PRESENT: normal external ear exam Mouth exam: PRESENT: moist Respiratory exam: PRESENT: clear to auscultation heike Cardiovascular exam: PRESENT: RRR. ABSENT: diastolic murmur, rubs, systolic murmur Vascular exam: ABSENT: pallor GI/Abdominal exam: PRESENT: normal bowel sounds, soft. ABSENT: distended, guarding, mass, organomegaly, rebound, tenderness Extremities exam: PRESENT: other - left ankle surgical site okay with cast in place. ABSENT: pedal edema Neurological exam: PRESENT: alert, awake, oriented to person, oriented to place , oriented to time, oriented to situation, CN II-XII grossly intact. ABSENT: motor sensory deficit Psychiatric exam: PRESENT: appropriate affect, normal mood. ABSENT: homicidal ideation, suicidal ideation Skin exam: PRESENT: dry, warm Results Laboratory Results: 07/26/18 07:05 07/26/18 07:05 07/26/18 07/26/18 07:05 07:05 WBC 10.7 H RBC 3.87 Hgb 11.5 L Hct 34.0 L MCV 88 MCH 29.6 MCHC 33.6 RDW 14.0 Plt Count 325 Seg Neutrophils % 77.6 Lymphocytes % 15.2 Monocytes % 6.8 Eosinophils % 0.1 Basophils % 0.3 Absolute Neutrophils 8.3 H Absolute Lymphocytes 1.6 Absolute Monocytes 0.7 Absolute Eosinophils 0.0 Absolute Basophils 0.0 Sodium 142.3 Potassium 3.3 L Chloride 102 Carbon Dioxide 30 Anion Gap 10 BUN 10 Creatinine 0.60 Est GFR ( Amer) > 60 Est GFR (Non-Af Amer) > 60 Glucose 132 H Calcium 10.3 H Impressions: Ankle X-Ray 07/24/18 15:05 IMPRESSION: Persistent disrupted ankle mortise with medial compartment measuring 1.7 cm wide. Persistent 9 mm posterior subluxation of the talus from the mortise. The distal fibular, medial malleolar and posterior plafond fractures are again noted. Chest X-Ray 07/24/18 15:24 IMPRESSION: NO ACUTE RADIOGRAPHIC FINDING IN THE CHEST. Fluoroscopy 07/25/18 00:00 IMPRESSION: ORIF left ankle fluoro and C-arm images Knee X-Ray 07/25/18 00:00 IMPRESSION: ORIF left ankle fluoro and C-arm images Assessment & Plan - Diagnosis (1) Fall (on)(from) sidewalk curb, initial encounter Qualifiers: Encounter type: initial encounter Qualified Code(s): W10.1XXA - Fall (on)( from) sidewalk curb, initial encounter Is this a current diagnosis for this admission?: Yes (2) Trimalleolar fracture of ankle, closed Qualifiers: Encounter type: initial encounter Laterality: left Qualified Code(s): S82.852A - Displaced trimalleolar fracture of left lower leg, initial encounter for closed fracture Is this a current diagnosis for this admission?: Yes (3) HTN (hypertension) Qualifiers: Hypertension type: essential hypertension Qualified Code(s): I10 - Essential (primary) hypertension Is this a current diagnosis for this admission?: Yes (4) HLD (hyperlipidemia) Qualifiers: Hyperlipidemia type: unspecified Qualified Code(s): E78.5 - Hyperlipidemia , unspecified Is this a current diagnosis for this admission?: Yes (5) GERD (gastroesophageal reflux disease) Qualifiers: Esophagitis presence: without esophagitis Qualified Code(s): K21.9 - Gastro -esophageal reflux disease without esophagitis Is this a current diagnosis for this admission?: Yes (6) Osteoarthritis involving multiple joints on both sides of body Is this a current diagnosis for this admission?: Yes (7) Obesity (BMI 30-39.9) Is this a current diagnosis for this admission?: Yes - Time Time Spent with patient: 25-34 minutes Medications reviewed and adjusted accordingly: Yes Anticipated discharge: Home with Homehealth Within: Other - Inpatient Certification Based on my medical assessment, after consideration of the patient's comorbidities, presenting symptoms, or acuity I expect that the services needed warrant INPATIENT care.: Yes I certify that my determination is in accordance with my understanding of Medicare's requirements for reasonable and necessary INPATIENT services [42 CFR 412.3e].: Yes Medical Necessity: Need Close Monitoring Due to Risk of Patient Decompensation, Need For Continuous Telemetry Monitoring, Need for Pain Control, Risk of Complication if Not Cared For in Hospital Post Hospital Care: D/C Hand Drawer In Documentation, D/C or Transfer Summary - depending on her participation in PT session - Plan Summary Plan Summary: Continue current medication management. Encouraged participation in PT session and follow not-weight bearing status instruction.
[2018-07-26] MEDS: ATORVASTATIN CALCIUM 20 MG TABLET PO SCH (21:45)
--- NOTE | 2018-07-27 07:02 | PDOC PROGRESS REPORT ---
Subjective Progress Note for:: 07/27/18 Reason For Visit: S/P ACCIDENTAL FALL OUTSIDE OF HOME LEFT ARIADNE 82-year-old black female postop day 2 status post ORIF of left trimalleolar ankle fracture. Limited progress with physical therapy yesterday. Physical Exam Vital Signs: Temp Pulse Resp BP Pulse Ox 36.8 C 81 16 152/61 H 99 07/27/18 03:20 07/27/18 03:20 07/27/18 03:20 07/27/18 03:20 07/27/18 03:20 Intake & Output 07/26/18 07/27/18 07/28/18 06:59 06:59 06:59 Intake Total 5089 1277 Output Total 25 Balance 5064 1277 Weight 102.9 kg 102.9 kg General appearance: PRESENT: no acute distress, mild distress Head exam: PRESENT: normocephalic Extremities exam: PRESENT: other - Left ankle posterior splint in place. Distal neurovascular examination is intact. Results Laboratory Results: 07/26/18 07:05 07/26/18 07:05 07/26/18 07/26/18 07:05 07:05 WBC 10.7 H RBC 3.87 Hgb 11.5 L Hct 34.0 L MCV 88 MCH 29.6 MCHC 33.6 RDW 14.0 Plt Count 325 Seg Neutrophils % 77.6 Lymphocytes % 15.2 Monocytes % 6.8 Eosinophils % 0.1 Basophils % 0.3 Absolute Neutrophils 8.3 H Absolute Lymphocytes 1.6 Absolute Monocytes 0.7 Absolute Eosinophils 0.0 Absolute Basophils 0.0 Sodium 142.3 Potassium 3.3 L Chloride 102 Carbon Dioxide 30 Anion Gap 10 BUN 10 Creatinine 0.60 Est GFR ( Amer) > 60 Est GFR (Non-Af Amer) > 60 Glucose 132 H Calcium 10.3 H Impressions: Ankle X-Ray 07/24/18 15:05 IMPRESSION: Persistent disrupted ankle mortise with medial compartment measuring 1.7 cm wide. Persistent 9 mm posterior subluxation of the talus from the mortise. The distal fibular, medial malleolar and posterior plafond fractures are again noted. Chest X-Ray 07/24/18 15:24 IMPRESSION: NO ACUTE RADIOGRAPHIC FINDING IN THE CHEST. Fluoroscopy 07/25/18 00:00 IMPRESSION: ORIF left ankle fluoro and C-arm images Knee X-Ray 07/25/18 00:00 IMPRESSION: ORIF left ankle fluoro and C-arm images Status: Imported from PACS Assessment & Plan - Diagnosis (1) Trimalleolar fracture of ankle, closed Qualifiers: Encounter type: initial encounter Laterality: left Qualified Code(s): S82.852A - Displaced trimalleolar fracture of left lower leg, initial encounter for closed fracture Is this a current diagnosis for this admission?: Yes Plan: Postop day 2 status post ORIF of a left trimalleolar ankle fracture with limited progress with physical therapy. Social work involved for jail facility placement at [place]. - Time Time Spent with patient: 15-24 minutes Anticipated discharge: SNF Within: when bed available
[2018-07-27] MEDS: OXYCODONE HCL IR 5 MG TABLET PO PRN ×2 (09:24→22:06)
[2018-07-27] MEDS: AMLODIPINE BESYLATE 10 MG TABLET PO SCH (09:25)
[2018-07-27] MEDS: VALSARTAN 160 MG TABLET PO SCH (09:25)
[2018-07-27] MEDS: MULTIVITAMIN TABLET PO SCH (09:25)
[2018-07-27] MEDS: HYDROCHLOROTHIAZIDE 12.5 MG TABLET PO SCH (09:25)
[2018-07-27] MEDS: LANSOPRAZOLE 15 MG TAB.RAP.DR PO SCH (09:26)
[2018-07-27] MEDS: ENOXAPARIN SODIUM INJ 40 MG/0.4 ML DISP.SYRIN SUBCUT SCH (09:26)
[2018-07-27] MEDS: ASPIRIN 81 MG TABLET, ENT COATED PO SCH (09:26)
[2018-07-27] MEDS ORDERED: IPRATROPIUM/ALBUTEROL 0.5-2.5 MG/3 ML AMPUL NEB PRN (13:35)
--- NOTE | 2018-07-27 17:45 | PDOC PROGRESS REPORT ---
Subjective Progress Note for:: 07/27/18 Subjective:: She participated in stationary PT session today. No chest pain or shortness of breath. She reported satisfactory bowel movement. No abdominal pain, nausea, or vomiting. No fever or chills. Reason For Visit: S/P ACCIDENTAL FALL OUTSIDE OF HOME LEFT ANK;LE Physical Exam Vital Signs: Temp Pulse Resp BP Pulse Ox 97.7 F 89 18 121/74 98 07/27/18 15:35 07/27/18 15:35 07/27/18 15:35 07/27/18 15:35 07/27/18 15:35 Intake & Output 07/26/18 07/27/18 07/28/18 06:59 06:59 06:59 Intake Total 5089 1277 355 Output Total 25 Balance 5064 1277 355 Weight 102.9 kg 102.9 kg Physical Exam: General appearance: PRESENT: no acute distress, obese Head exam: PRESENT: atraumatic, normocephalic Eye exam: PRESENT: conjunctiva pink, EOMI, PERRLA. ABSENT: scleral icterus Ear exam: PRESENT: normal external ear exam Mouth exam: PRESENT: moist Respiratory exam: PRESENT: clear to auscultation heike Cardiovascular exam: PRESENT: RRR. ABSENT: diastolic murmur, rubs, systolic murmur Vascular exam: ABSENT: pallor GI/Abdominal exam: PRESENT: normal bowel sounds, soft. ABSENT: distended, guarding, mass, organomegaly, rebound, tenderness Extremities exam: PRESENT: other - left ankle surgical site okay with cast in place. ABSENT: pedal edema Neurological exam: PRESENT: alert, awake, oriented to person, oriented to place , oriented to time, oriented to situation, CN II-XII grossly intact. ABSENT: motor sensory deficit Psychiatric exam: PRESENT: appropriate affect, normal mood. ABSENT: homicidal ideation, suicidal ideation Skin exam: PRESENT: dry, warm Results Laboratory Results: 07/26/18 07:05 07/26/18 07:05 Impressions: Ankle X-Ray 07/24/18 15:05 IMPRESSION: Persistent disrupted ankle mortise with medial compartment measuring 1.7 cm wide. Persistent 9 mm posterior subluxation of the talus from the mortise. The distal fibular, medial malleolar and posterior plafond fractures are again noted. Chest X-Ray 07/24/18 15:24 IMPRESSION: NO ACUTE RADIOGRAPHIC FINDING IN THE CHEST. Fluoroscopy 07/25/18 00:00 IMPRESSION: ORIF left ankle fluoro and C-arm images Knee X-Ray 07/25/18 00:00 IMPRESSION: ORIF left ankle fluoro and C-arm images Assessment & Plan - Diagnosis (1) Fall (on)(from) sidewalk curb, initial encounter Qualifiers: Encounter type: initial encounter Qualified Code(s): W10.1XXA - Fall (on)( from) sidewalk curb, initial encounter Is this a current diagnosis for this admission?: Yes (2) Trimalleolar fracture of ankle, closed Qualifiers: Encounter type: initial encounter Laterality: left Qualified Code(s): S82.852A - Displaced trimalleolar fracture of left lower leg, initial encounter for closed fracture Is this a current diagnosis for this admission?: Yes (3) HTN (hypertension) Qualifiers: Hypertension type: essential hypertension Qualified Code(s): I10 - Essential (primary) hypertension Is this a current diagnosis for this admission?: Yes (4) HLD (hyperlipidemia) Qualifiers: Hyperlipidemia type: unspecified Qualified Code(s): E78.5 - Hyperlipidemia , unspecified Is this a current diagnosis for this admission?: Yes (5) GERD (gastroesophageal reflux disease) Qualifiers: Esophagitis presence: without esophagitis Qualified Code(s): K21.9 - Gastro -esophageal reflux disease without esophagitis Is this a current diagnosis for this admission?: Yes (6) Osteoarthritis involving multiple joints on both sides of body Is this a current diagnosis for this admission?: Yes (7) Obesity (BMI 30-39.9) Is this a current diagnosis for this admission?: Yes - Time Time Spent with patient: 25-34 minutes Medications reviewed and adjusted accordingly: Yes Anticipated discharge: SNF Within: within 24 hours - Inpatient Certification Based on my medical assessment, after consideration of the patient's comorbidities, presenting symptoms, or acuity I expect that the services needed warrant INPATIENT care.: Yes I certify that my determination is in accordance with my understanding of Medicare's requirements for reasonable and necessary INPATIENT services [42 CFR 412.3e].: Yes Medical Necessity: Need Close Monitoring Due to Risk of Patient Decompensation, Need For Continuous Telemetry Monitoring, Need for Pain Control, Risk of Complication if Not Cared For in Hospital Post Hospital Care: D/C or Transfer Summary - Plan Summary Plan Summary: Patient will receive potassium replacement. Obtain BMP in AM. Possible transfer to SNF tomorrow.
[2018-07-27] MEDS: POTASSIUM CHLORIDE 10 MEQ CAPSULE.ER PO SCH ×2 (18:34→22:07)
[2018-07-27 18:41] LABS: ANION GAP 10 (5-19); BLOOD UREA NITROGEN 15 mg/dL (7-20); CALCIUM 10.1 mg/dL (8.4-10.2); CARBON DIOXIDE 33 mmol/L (22-30); CHLORIDE 98 mmol/L (98-107); GLUCOSE 132 mg/dL (75-110); POTASSIUM 3.3 mmol/L (3.6-5.0)
[2018-07-27] MEDS: ATORVASTATIN CALCIUM 20 MG TABLET PO SCH (22:06)
[2018-07-28] MEDS: OXYCODONE HCL IR 5 MG TABLET PO PRN (08:05)
--- NOTE | 2018-07-28 08:42 | PDOC TRANSFER SUMMARY ---
General - Admit/Disc Date/PCP Admission Date/Primary Care Provider: 07/24/18 15:32 JANNETTE RENETTA Discharge Date: 07/28/18 - Discharge Diagnosis (1) Fall (on)(from) sidewalk curb, initial encounter Is this a current diagnosis for this admission?: Yes (2) Trimalleolar fracture of ankle, closed Is this a current diagnosis for this admission?: Yes (3) HTN (hypertension) Is this a current diagnosis for this admission?: Yes (4) HLD (hyperlipidemia) Is this a current diagnosis for this admission?: Yes (5) GERD (gastroesophageal reflux disease) Is this a current diagnosis for this admission?: Yes (6) Osteoarthritis involving multiple joints on both sides of body Is this a current diagnosis for this admission?: Yes (7) Obesity (BMI 30-39.9) Is this a current diagnosis for this admission?: Yes - Additional Information Resuscitation Status: Full Code Discharge Diet: Cardiac Discharge Activity: Activity As Tolerated, No Lifting Over 10 Pounds, Slowly Increase Activity, Supervised Activity Prescriptions: Oxycodone HCl/Acetaminophen [Percocet 5-325 mg Tablet] 1 tab PO Q6HP PRN #60 tab PRN Reason: Home Medications: Amlodipine Besylate/Valsartan [Exforge 10-320 mg Tablet] 1 tab PO DAILY Aspirin [Aspirin EC] 81 mg PO DAILY 07/25/18 Hydrochlorothiazide [Hydrodiuril 12.5 mg Tablet] 12.5 mg PO DAILY 07/25/18 Lubiprostone [Amitiza 8 Mcg Capsule] 8 mcg PO BID 07/25/18 Meclizine HCl [Antivert 25 mg Tablet] 25 mg PO BIDP PRN 07/25/18 Omeprazole 20 mg PO DAILY 07/25/18 Rosuvastatin Calcium [Crestor 10 mg Tablet] 10 mg PO QHS 07/25/18 Oxycodone HCl/Acetaminophen [Percocet 5-325 mg Tablet] 1 tab PO Q6HP PRN #60 tab 07/28/18 History of Present Illness Admission Date/PCP: 07/24/18 15:32 JANNETTE JACKSON History of Present Illness: MINH FRAGOSO is a 82 year old female known to my practice who presented to the ED with incident of fall outside her home and sustained left aknle fracture. She denied any preceding chest pain, palpitation, dizziness or light headedness. She described incident as missed step into a broken pavement concrete and lost her balance with subsequent fall. She denied loss of consciousness. There was subsequent associated difficulty with walking. Her initial evaluation in the Ed was remarkable for compound fracture involving the left ankle joint. She had closed reduction in the ED with Fentanyl administration with application of external immobilizer. She was advised hospitalization for further evaluation and management with orthopod input. Her morbidities include hypertension, hyperlipidemia, GERD, Osteoarthritis, and obesity. Hospital Course Hospital Course: Patient was admitted for left ankle fracture. She was seen by orthopedic team and taken to operating room for left ankle ORIF with soft tissue repair. Post operatively she has been doing fine and participating in physical therapy sessions. She is agreeable to short term rehabilitation at [facility]. She will be transferred to the facility today. She will follow up with Dr Omkar García, orthopedic surgeon, and myself a instructed upon discharge. Physical Exam Vital Signs: Temp Pulse Resp BP Pulse Ox 98.9 F 85 17 127/60 H 98 07/28/18 04:08 07/28/18 04:08 07/28/18 04:08 07/28/18 04:08 07/28/18 04:08 Intake & Output 07/27/18 07/28/18 07/29/18 06:59 06:59 06:59 Intake Total 1277 473 Balance 1277 473 Weight 102.9 kg 102.9 kg General appearance: PRESENT: no acute distress, obese Head exam: PRESENT: atraumatic, normocephalic Eye exam: PRESENT: conjunctiva pink, EOMI, PERRLA. ABSENT: scleral icterus Ear exam: PRESENT: normal external ear exam Mouth exam: PRESENT: moist Respiratory exam: PRESENT: clear to auscultation heike Cardiovascular exam: PRESENT: RRR. ABSENT: diastolic murmur, rubs, systolic murmur Vascular exam: ABSENT: pallor GI/Abdominal exam: PRESENT: normal bowel sounds, soft. ABSENT: distended, guarding, mass, organomegaly, rebound, tenderness Extremities exam: PRESENT: other - left ankle surgical site okay with cast in place. ABSENT: pedal edema Neurological exam: PRESENT: alert, awake, oriented to person, oriented to place , oriented to time, oriented to situation, CN II-XII grossly intact. ABSENT: motor sensory deficit Psychiatric exam: PRESENT: appropriate affect, normal mood. ABSENT: homicidal ideation, suicidal ideation Skin exam: PRESENT: dry, warm Results Laboratory Results: 07/26/18 07:05 07/27/18 18:17 07/27/18 18:17 Sodium 141.0 Potassium 3.3 L Chloride 98 Carbon Dioxide 33 H Anion Gap 10 BUN 15 Creatinine 0.79 Est GFR ( Amer) > 60 Est GFR (Non-Af Amer) > 60 Glucose 132 H Calcium 10.1 Magnesium 1.8 Impressions: Ankle X-Ray 07/24/18 15:05 IMPRESSION: Persistent disrupted ankle mortise with medial compartment measuring 1.7 cm wide. Persistent 9 mm posterior subluxation of the talus from the mortise. The distal fibular, medial malleolar and posterior plafond fractures are again noted. Chest X-Ray 07/24/18 15:24 IMPRESSION: NO ACUTE RADIOGRAPHIC FINDING IN THE CHEST. Fluoroscopy 07/25/18 00:00 IMPRESSION: ORIF left ankle fluoro and C-arm images Knee X-Ray 07/25/18 00:00 IMPRESSION: ORIF left ankle fluoro and C-arm images Transfer Plan - Disposition Transfer Plan: Transfer to [facility] for short term rehabilitation. Qualifiers - * PATIENT BEING DISCHARGED WITH ANY OF THE FOLLOWING DIAGNOSIS: No Plan Discharge Plan: Transfer to [facility] for short term rehabilitation.
[2018-07-28] MEDS ORDERED: POTASSIUM CHLORIDE 10 MEQ CAPSULE.ER PO ONE (09:25)
[2018-07-28] MEDS: ENOXAPARIN SODIUM INJ 40 MG/0.4 ML DISP.SYRIN SUBCUT SCH (09:27)
[2018-07-28] MEDS: VALSARTAN 160 MG TABLET PO SCH (09:27)
[2018-07-28] MEDS: ASPIRIN 81 MG TABLET, ENT COATED PO SCH (09:28)
[2018-07-28] MEDS: AMLODIPINE BESYLATE 10 MG TABLET PO SCH (09:28)
[2018-07-28] MEDS: MULTIVITAMIN TABLET PO SCH (09:28)
[2018-07-28] MEDS: LANSOPRAZOLE 15 MG TAB.RAP.DR PO SCH (09:28)
[2018-07-28] MEDS: HYDROCHLOROTHIAZIDE 12.5 MG TABLET PO SCH (09:28)
[2018-07-28 09:48] VITALS: BP 127/59
[2018-07-28] MEDS ORDERED: POTASSIUM CHLORIDE 10 MEQ CAPSULE.ER PO SCH (10:00)
== END 2018-07-28 13:00 | DRG 494 ==
LOC: ER 11:47 → EH 15:32 → 5 16:50
PROVIDERS: ADMIT Internal Medicine Geriatric Medicine; ATTEND Internal Medicine Geriatric Medicine
PROC: 0QSHXZZ Reposition Left Tibia, External Approach (ICD-10-PCS; 2018-07-24)
PROC: 0QSK04Z Reposition Left Fibula with Internal Fixation Device, Open Approach (ICD-10-PCS; principal; 2018-07-25 13:45)
DX: S82.852A Displaced trimalleolar fracture of left lower leg, initial encounter for closed fracture (principal); W10.1XXA Fall (on)(from) sidewalk curb, initial encounter; E78.00 Pure hypercholesterolemia, unspecified; I10 Essential (primary) hypertension; K21.9 Gastro-esophageal reflux disease without esophagitis; M15.3 Secondary multiple arthritis; K59.00 Constipation, unspecified; E66.9 Obesity, unspecified; Z68.30 Body mass index [BMI] 30.0-30.9, adult; Z90.710 Acquired absence of both cervix and uterus; Z79.899 Other long term (current) drug therapy; Z87.891 Personal history of nicotine dependence
CPT/HCPCS: 01480; 36415; 71045; 80048; 83735; 85025; 93005; 93010; 96361; 96374; 99285; 99152; A9270 GY; C1713; C1769; G8978-GP; G8979-GP; J0690; J1650; J2250; J2270; J2704; J3010; J3490; J7030; J7120

== ENCOUNTER → 2018-09-30 | Outpatient (CLI) | payer MEDICARE, OTHER ==
--- NOTE | 2018-09-30 13:28 | WOMENS IMAGING REPORT ---
EXAM DESCRIPTION: 3D SCREENING MAMMO BILAT COMPLETED DATE/TIME: 09/30/2018 10:38 am REASON FOR STUDY: SCREENING MAMMO Z12.31 ENCNTR SCREEN MAMMOGRAM FOR MALIGNANT NEOPLASM OF [place] COMPARISON: Multiple since 2008 TECHNIQUE: Standard craniocaudal and mediolateral oblique views of each breast recorded using digita l acquisition and breast tomosynthesis. LIMITATIONS: None. FINDINGS: No masses, calcifications or architectural distortion. No areas of suspicion. Stable maggie gn bilateral breast parenchymal calcifications and nodules. Read with the assistance of CAD. .[facility] - R2 Cenova Version 1.3 .[facility] - R2 Cenova Version 1.3 .[facility] - R2 Cenova Version 2.4 .[facility] - R2 Cenova Version 2.4 .[facility] - R2 Director [employer] Version 9.2 IMPRESSION: Benign findings. BI-RADS 2 BREAST DENSITY: c. The breasts are heterogeneously dense, which may obscure small masses. BIRAD: 2 benign findings RECOMMENDATION: ROUTINE SCREENING Please continue yearly bilateral screening mammography/tomosynthesis in September 2019 COMMENT: The patient has been notified of the results by letter per SA requirements. Additional no tification policies are in place for contacting patient with suspicious or incomplete findings. Quality ID #225: The [employer] recommends an annual screening mammogram for women aged 40 years or over. This facility utilizes a reminder system to ensure that all patients receive reminder letters, and/or direct phone calls for appointments. This includes reminders for routine scr eening mammograms, diagnostic mammograms, or other Breast Imaging Interventions when appropriate. Th is patient will be placed in the appropriate reminder system. The [employer] (ACR) has developed recommendations for screening MRI of the breast s in certain patient populations, to be used in conjunction with mammography. Breast MRI surveillanc e may be appropriate for women with more than 20% lifetime risk of developing breast cancer as deter mined by genetic testing, significant family history of the disease, or history of mantle radiation f or Hodgkins Disease. ACR Practice Guidelines 2008. DBT Technology DBT is a type of tomographic mammography. With conventional mammography, overlapping breast tissue ma y make lesions difficult to detect, even with good compression. DBT uses an x-ray tube that rotates a round the breast, taking images at different angles. These images are then combined to create thin sl ices of the breast that the radiologist can view as a 3D reconstruction. The [employer] unit can perform full-field digital mammograms (2D imaging); or DBT (3D imaging); or both, in a combination mode that quickly performs both the mammogram and the tomosynthesis scan while the breast is still compressed. PQRS 6045F: Fluoroscopic imaging is not utilized for breast tomosynthesis. TECHNICAL DOCUMENTATION: FINDING NUMBER: (1) ASSESSMENT: (1) JOB ID: [id number] [employer]- All Rights Reserved Reading location - IP/workstation name: [email or web address]-[email or web address]
== END ==
LOC: WI 10:14
PROVIDERS: ATTEND Internal Medicine Geriatric Medicine
DX: Z12.31 Encounter for screening mammogram for malignant neoplasm of breast (principal)
CPT/HCPCS: 77063; 77067

== ENCOUNTER → 2019-04-19 | Outpatient (CLI) | payer MEDICARE, OTHER ==
--- NOTE | 2019-04-19 15:14 | RADIOLOGY REPORT (SQ) ---
EXAM DESCRIPTION: CAROTID DOPPLER COMPLETED DATE/TIME: 04/19/2019 2:48 pm REASON FOR STUDY: OCCLUSION/STENOSIS I65.23 OCCLUSION AND STENOSIS OF BILATERAL CAROTID ARTERIES COMPARISON: None. TECHNIQUE: Grayscale ultrasound, Doppler velocity and spectra, and color Doppler images acquired of the extra-cranial carotid and vertebral arteries. Images stored on PACS. LIMITATIONS: None. FINDINGS: RIGHT CAROTID CCA Velocities: Within normal limits. ICA Velocities Peak systolic 0.90 m/s. End diastolic 0.28 m/s. Proximal ICA/CCA peak systolic ratio 1.2. Minimal calcified plaque at the origin of the ICA. LEFT CAROTID CCA Velocities: Within normal limits. ICA Velocities Peak systolic 1.07 m/s. End diastolic 0.30 m/s. Proximal ICA/CCA peak systolic ratio 1.7. There is calcified plaque at the origin the left internal carotid artery. VERTEBRAL ARTERIES: Antegrade flow. Normal waveforms. SUBCLAVIAN ARTERIES: No finding. OTHER: No other significant finding. IMPRESSION: NO HEMODYNAMICALLY SIGNIFICANT STENOSIS. COMMENT: Quality ID #195: Velocity criteria are extrapolated from the diameter data as defined by t he Society of Radiologists in Ultrasound Consensus Conference. Radiology 2003: 229; 340-346. TECHNICAL DOCUMENTATION: JOB ID: [id number] [employer]- All Rights Reserved Reading location - IP/workstation name: [email or web address]
== END ==
LOC: SP 08:03
PROVIDERS: ATTEND Internal Medicine Geriatric Medicine
DX: I65.23 Occlusion and stenosis of bilateral carotid arteries (principal)
CPT/HCPCS: 93880

== ENCOUNTER 2019-05-17 11:03 | Day surgery (SDC) | payer MEDICARE, OTHER ==
[~2019-05-17 11:03] MED LIST: KETOROLAC TROMETHAMINE 0.45% 4 DROP/0.4 ML DROPERETTE OD PRN; TETRACAINE HCL 0.5% OPH SOLN 0.6 ML DROPERETTE OD PRN
[2019-05-17] MEDS: TETRACAINE HCL 0.5% OPH SOLN 4 ML OD PRN ×3 (11:51→12:26)
[2019-05-17] MEDS: BESIFLOXACIN HCL 0.6% OPH SUSP 5 ML BOTTLE OD PRN ×4 (11:52→12:51)
[2019-05-17] MEDS: CYCLOPENTOLATE 0.2%/PHENYLEPHRINE 1% OPH SOLN 2 ML OD PRN ×3 (11:52→12:14)
[2019-05-17] MEDS: TROPICAMIDE 1% OPH SOLN 3 ML OD PRN ×3 (11:52→12:14)
[2019-05-17] MEDS ORDERED: FENTANYL CITRATE INJ/PF 100 MCG/2 ML AMPUL ONE (12:14)
[2019-05-17] MEDS ORDERED: MIDAZOLAM 2 MG/2 ML INJ ONE (12:14)
[2019-05-17] MEDS: EPINEPHRINE INJ/PF 1 MG/1 ML AMPULE ONE ×2 (12:41)
[2019-05-17] MEDS: CHONDR SU A NA/HYALUR INTRAOC KIT (SURGICARE) ONE ×2 (12:41)
[2019-05-17] MEDS: LIDOCAINE 1% INJ-PF (10 MG/ML) 30 ML SDV ONE ×2 (12:42)
[2019-05-17] MEDS: TOBRAMYCIN SULFATE/DEXAMETH OPH OINTMENT 3.5 GM ONE ×2 (12:51)
[2019-05-17] MEDS: DORZOLAMIDE HCL 2%/TIMOLOL MALEAT 0.5% OPH SOLN 10 ML OD PRN ×2 (12:51)
== END 2019-05-17 13:33 | disposition home or self-care (01) ==
LOC: SC 11:03
PROVIDERS: ATTEND Ophthalmology
DX: H25.11 Age-related nuclear cataract, right eye (principal); I10 Essential (primary) hypertension; E78.00 Pure hypercholesterolemia, unspecified; K21.9 Gastro-esophageal reflux disease without esophagitis; Z79.899 Other long term (current) drug therapy; Z79.82 Long term (current) use of aspirin
CPT/HCPCS: 66984; V2632; J2250; J3490 ×4; A9270; J0171; J3010; 142

== ENCOUNTER 2019-05-31 08:48 | Day surgery (SDC) | payer MEDICARE, OTHER ==
[~2019-05-31 08:48] MED LIST changes: +CHONDR SU A NA/HYALUR INTRAOC KIT (SURGICARE) ONE; +EPINEPHRINE INJ/PF 1 MG/1 ML AMPULE ONE; -KETOROLAC TROMETHAMINE 0.45% 4 DROP/0.4 ML DROPERETTE OD PRN; +KETOROLAC TROMETHAMINE 0.45% 4 DROP/0.4 ML DROPERETTE OS PRN; +LIDOCAINE 1% INJ-PF (10 MG/ML) 30 ML SDV ONE; -TETRACAINE HCL 0.5% OPH SOLN 0.6 ML DROPERETTE OD PRN
[2019-05-31] MEDS: CYCLOPENTOLATE 0.2%/PHENYLEPHRINE 1% OPH SOLN 2 ML OS PRN ×3 (09:25→09:45)
[2019-05-31] MEDS: TETRACAINE HCL 0.5% OPH SOLN 4 ML OS PRN ×3 (09:25→09:57)
[2019-05-31] MEDS: BESIFLOXACIN HCL 0.6% OPH SUSP 5 ML BOTTLE OS PRN ×4 (09:25→10:25)
[2019-05-31] MEDS: TROPICAMIDE 1% OPH SOLN 3 ML OS PRN ×3 (09:25→09:45)
[2019-05-31] MEDS ORDERED: MIDAZOLAM 2 MG/2 ML INJ ONE (09:37)
[2019-05-31] MEDS ORDERED: FENTANYL CITRATE INJ/PF 100 MCG/2 ML AMPUL ONE (09:37)
[2019-05-31] MEDS: DORZOLAMIDE HCL 2%/TIMOLOL MALEAT 0.5% OPH SOLN 10 ML OS PRN ×2 (10:10→10:25)
[2019-05-31] MEDS: TOBRAMYCIN SULFATE/DEXAMETH OPH OINTMENT 3.5 GM ONE ×2 (10:11→10:25)
== END 2019-05-31 11:01 | disposition home or self-care (01) ==
LOC: SC 08:48
PROVIDERS: ATTEND Ophthalmology
DX: H25.12 Age-related nuclear cataract, left eye (principal); Z98.41 Cataract extraction status, right eye; E78.00 Pure hypercholesterolemia, unspecified; I10 Essential (primary) hypertension; K21.9 Gastro-esophageal reflux disease without esophagitis; Z79.82 Long term (current) use of aspirin; Z79.899 Other long term (current) drug therapy
CPT/HCPCS: 66984; 00142; V2632; J2250; J3490 ×4; A9270; J0171; J3010; 142

== ENCOUNTER 2019-07-26 06:34 | Day surgery (SDC) | payer MEDICARE, OTHER ==
[2019-07-19 09:47] LABS: HEMATOCRIT 40.1 % (36.0-47.0); HEMOGLOBIN 13.5 g/dL (12.0-15.5); MEAN CORPUSCULAR HEMOGLOBIN 30.4 pg (27.0-33.4); MEAN CORPUSCULAR HGB CONC 33.6 g/dL (32.0-36.0); MEAN CORPUSCULAR VOLUME 90 fl (80-97); PLATELET COUNT 328 10^3/uL (150-450); RED BLOOD COUNT 4.43 10^6/uL (3.72-5.28); RED CELL DISTRIBUTION WIDTH 13.6 % (11.5-14.0); WHITE BLOOD COUNT 6.2 10^3/uL (4.0-10.5)
[2019-07-19 09:50] LABS: APPEARANCE,URINE SLIGHTLY-CLOUDY; BILIRUBIN,URINE NEGATIVE (NEGATIVE); COLOR,URINE YELLOW; GLUCOSE, URINE NEGATIVE (NEGATIVE); KETONES,URINE NEGATIVE (NEGATIVE); LEUKOCYTE ESTERASE,URINE MODERATE (NEGATIVE); NITRITE,URINE NEGATIVE (NEGATIVE); PROTEIN,URINE 30 mg/dL (NEGATIVE); URINE SPECIFIC GRAVITY 1.019; UROBILINOGEN,URINE NEGATIVE mg/dL (<2.0)
--- NOTE | 2019-07-19 10:08 | RADIOLOGY REPORT (SQ) ---
EXAM DESCRIPTION: CHEST PA/LATERAL COMPLETED DATE/TIME: 07/19/2019 9:24 am REASON FOR STUDY: PRE-OP COMPARISON: None. EXAM PARAMETERS: NUMBER OF VIEWS: two views TECHNIQUE: Digital Frontal and Lateral radiographic views of the chest acquired. RADIATION DOSE: NA LIMITATIONS: none FINDINGS: LUNGS AND PLEURA: No opacities, masses or pneumothorax. No pleural effusion. MEDIASTINUM AND HILAR STRUCTURES: No masses or contour abnormalities. HEART AND VASCULAR STRUCTURES: Heart normal size. No evidence for failure. Aortic atherosclerosis. BONES: No acute findings. HARDWARE: None in the chest. OTHER: Prior cholecystectomy. IMPRESSION: NO SIGNIFICANT RADIOGRAPHIC FINDING IN THE CHEST. TECHNICAL DOCUMENTATION: JOB ID: [id number] [employer]- All Rights Reserved Reading location - IP/workstation name: [email or web address]
[2019-07-19 10:24] LABS: ANION GAP 10 (5-19); BLOOD UREA NITROGEN 24 mg/dL (7-20); CALCIUM 11.1 mg/dL (8.4-10.2); CARBON DIOXIDE 32 mmol/L (22-30); CHLORIDE 103 mmol/L (98-107); GLUCOSE 104 mg/dL (75-110); POTASSIUM 4.2 mmol/L (3.6-5.0)
--- NOTE | 2019-07-19 13:01 | EKG REPORT ---
SEVERITY:- OTHERWISE NORMAL ECG - SINUS RHYTHM ATRIAL PREMATURE COMPLEX BORDERLINE LEFT AXIS DEVIATION : Confirmed by: Wade Naylor MD 19-Jul-2019 13:01:12
[~2019-07-26 06:34] MED LIST changes: +CEFAZOLIN SODIUM 2 GM in DEXTROSE 5%-WATER 100 ML IV PRN; -CHONDR SU A NA/HYALUR INTRAOC KIT (SURGICARE) ONE; -EPINEPHRINE INJ/PF 1 MG/1 ML AMPULE ONE; -KETOROLAC TROMETHAMINE 0.45% 4 DROP/0.4 ML DROPERETTE OS PRN; +LACTATED RINGERS 1000 ML IV PRN; +LIDOCAINE 0.5% INJ-PF (5 MG/ML) 50 ML SDV SUBCUT PRN; -LIDOCAINE 1% INJ-PF (10 MG/ML) 30 ML SDV ONE
[2019-07-26] MEDS ORDERED: METOPROLOL TARTRATE 25 MG TABLET ONE (07:08)
[2019-07-26] MEDS ORDERED: DIPHENHYDRAMINE HCL 50 MG/ML VIAL IV PRN (07:47)
[2019-07-26] MEDS ORDERED: OXYCODONE-ACETAMINOPHEN 5-325 MG TABLET PO PRN (07:47)
[2019-07-26] MEDS ORDERED: FENTANYL CITRATE INJ/PF 100 MCG/2 ML AMPUL IV PRN ×3 (07:47)
[2019-07-26] MEDS ORDERED: ONDANSETRON HCL INJ/PF 4 MG/2 ML SDV IV PRN (07:47)
[2019-07-26] MEDS ORDERED: MEPERIDINE HCL/PF INJ 25 MG/1 ML DISP.SYRIN IV PRN (07:47)
[2019-07-26] MEDS ORDERED: PROMETHAZINE HCL INJ 25 MG/1 ML VIAL IV PRN ×2 (07:47)
[2019-07-26] MEDS ORDERED: MIDAZOLAM 2 MG/2 ML INJ ONE (08:17)
[2019-07-26] MEDS ORDERED: PROPOFOL INJ 200 MG/20 ML VIAL IV ONE (08:17)
[2019-07-26] MEDS ORDERED: FENTANYL CITRATE INJ/PF 100 MCG/2 ML AMPUL ONE (08:17)
[2019-07-26] MEDS ORDERED: LIDOCAINE 2% INJ-PF (20 MG/ML) 10 ML AMPUL ONE (08:17)
[2019-07-26] MEDS ORDERED: BUPIVACAINE HCL 0.5%-EPI 1:200000 INJ/PF 30 ML VIAL ONE (08:23)
--- NOTE | 2019-07-26 09:01 | Discharge Summary ---
Discharge Summary (SDC) - Discharge Final Diagnosis: Prominent hardware status post ORIF of a left ankle fracture Date of Surgery: 07/26/19 Discharge Date: 07/26/19 Condition: Good Forms: ASU Anesthesia D/C Instruction, Discharge POC-Surgical Service Treatment or Instructions: Weightbearing as tolerated ambulation. No tub baths or immersion of the left foot for 2 weeks. Referrals: CHERYL BLACKBURN MD [ACTIVE STAFF] - Discharge Diet: Regular Respiratory Treatments at Home: Deep Breathing/Coughing Discharge Activity: Balance Activity w/Rest, No tub bath Home Care Assistance: None Needed Report the Following to Your Physician Immediately: Shortness of Breath, Fever over 101 Degrees, Drainage-Foul Smelling
--- NOTE | 2019-07-26 09:02 | Operative Report ---
Operative Report DATE OF SURGERY: 07/26/19 PREOPERATIVE DIAGNOSIS: Prominent hardware left ankle OPERATION: Hardware removal left ankle SURGEON: CHERYL BLACKBURN ANESTHESIA: LMAC ESTIMATED BLOOD LOSS: Minimal PROCEDURE: The patient supine on the operative table left lower extremities prepped and draped in sterile fashion. The screw that has backed out from the syndesmosis is easily palpable. The skin overlying is infiltrated with cane containing epinephrine. Subsequently a stab wound was made over the screw head. The screw head is brought into the field. Is easily removed with the appropriate screwdriver. The wound is irrigated. A Steri-Strip and Dermabond used to seal the wound. The patient's return to the PACU in satisfactory condition.
--- NOTE | 2019-07-26 13:32 | RADIOLOGY REPORT (SQ) ---
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 FLUOROSCOPY TIME: Less than 0.1 minute. 1 images saved to PACS. TECHNIQUE: Intra-operative images acquired during surgical procedure to evaluate progress. NUMBER OF IMAGES: 1 LIMITATIONS: None. FINDINGS: Image of the ankle acquired during the procedure. IMPRESSION: IMAGE(S) OBTAINED DURING PROCEDURE. COMMENT: Quality ID 145: Final reports for procedures using fluoroscopy that document radiation exp osure indices, or exposure time and number of fluorographic images (if radiation exposure indices are not available) Please consult full operative report of the attending physician for description of the procedure. TECHNICAL DOCUMENTATION: JOB ID: [id number] [employer]- All Rights Reserved Reading location - IP/workstation name: [email or web address]
--- NOTE | 2019-07-26 13:32 | RADIOLOGY REPORT (SQ) ---
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 FLUOROSCOPY TIME: Less than 0.1 minute. 1 images saved to PACS. TECHNIQUE: Intra-operative images acquired during surgical procedure to evaluate progress. NUMBER OF IMAGES: 1 LIMITATIONS: None. FINDINGS: Image of the ankle acquired during the procedure. IMPRESSION: IMAGE(S) OBTAINED DURING PROCEDURE. COMMENT: Quality ID 145: Final reports for procedures using fluoroscopy that document radiation exp osure indices, or exposure time and number of fluorographic images (if radiation exposure indices are not available) Please consult full operative report of the attending physician for description of the procedure. TECHNICAL DOCUMENTATION: JOB ID: [id number] [employer]- All Rights Reserved Reading location - IP/workstation name: [email or web address]
[2019-07-26 13:34] VITALS: BP 180/81
== END 2019-07-26 11:40 | disposition home or self-care (01) ==
LOC: OROUT 06:34
PROVIDERS: ATTEND Orthopaedic Surgery
DX: T84.84XA Pain due to internal orthopedic prosthetic devices, implants and grafts, initial encounter (principal); Y83.9 Surgical procedure, unspecified as the cause of abnormal reaction of the patient, or of later complication, without mention of misadventure at the time of the procedure; M25.572 Pain in left ankle and joints of left foot; Z79.899 Other long term (current) drug therapy; E78.00 Pure hypercholesterolemia, unspecified; I10 Essential (primary) hypertension; K21.9 Gastro-esophageal reflux disease without esophagitis
CPT/HCPCS: 93005; 36415 ×2; 84132; 85027; 80048; 81001; 73600; 71046; 93010; 01480; 20680; J2250; J3490 ×2; J0690; J3010; J7060; J2704

== ENCOUNTER → 2019-10-02 | Outpatient (CLI) | payer MEDICARE, OTHER ==
--- NOTE | 2019-10-02 15:11 | WOMENS IMAGING REPORT ---
EXAM DESCRIPTION: 3D SCREENING MAMMO BILAT COMPLETED DATE/TIME: 10/02/2019 11:09 am REASON FOR STUDY: Z12.31 SCREENING MAMMO Z12.31 ENCNTR SCREEN MAMMOGRAM FOR MALIGNANT NEOPLASM OF B RE COMPARISON: Multiple since 2008 EXAM PARAMETERS: Standard craniocaudal and mediolateral oblique views of each breast recorded using digital acquisition and breast tomosynthesis. Read with the assistance of CAD. .[facility] - R2 Radar Air Traffic Controller Version 9.2 LIMITATIONS: None. FINDINGS: Findings present which are benign by mammographic criteria. No suspicious masses, calcific ations or architectural distortion. Pertinent benign findings: Stable benign bilateral breast parenchymal calcifications. Old post lumpe ctomy change lower inner quadrant left breast. Benign mammographic findings may include one or more of the following: Smooth masses, popcorn/rim/coa rse calcifications, asymmetries, post-procedure changes, and lesions with long-standing stability. IMPRESSION: BENIGN MAMMOGRAPHIC FINDINGS. BIRADS 2 BREAST DENSITY: c. The breasts are heterogeneously dense, which may obscure small masses. BIRAD: ASSESSMENT: 2 BENIGN FINDING(S) RECOMMENDATION: ROUTINE SCREENING Please continue yearly bilateral screening mammography/tomosynthesis in September 2020 COMMENT: The patient has been notified of the results by letter per SA requirements. Additional no tification policies are in place for contacting patient with suspicious or incomplete findings. Quality ID #225: The [employer] recommends an annual screening mammogram for women aged 40 years or over. This facility utilizes a reminder system to ensure that all patients receive reminder letters, and/or direct phone calls for appointments. This includes reminders for routine scr eening mammograms, diagnostic mammograms, or other Breast Imaging Interventions when appropriate. Th is patient will be placed in the appropriate reminder system. TECHNICAL DOCUMENTATION: FINDING NUMBER: (1) ASSESSMENT: (1) JOB ID: [id number] [employer]- All Rights Reserved Reading location - IP/workstation name: [email or web address]
== END ==
LOC: WI 10:15
PROVIDERS: ATTEND Internal Medicine Geriatric Medicine
DX: Z12.31 Encounter for screening mammogram for malignant neoplasm of breast (principal)
CPT/HCPCS: 77063; 77067

== ENCOUNTER → 2020-11-06 | Outpatient (CLI) | payer MEDICARE, OTHER ==
--- NOTE | 2020-11-06 09:44 | WOMENS IMAGING REPORT ---
EXAM DESCRIPTION: 3D SCREENING MAMMO BILAT IMAGES COMPLETED DATE/TIME: 11/06/2020 8:52 am REASON FOR STUDY: ROUTINE BILATERAL SCREENING;Z12.31 Z12.31 ENCNTR SCREEN MAMMOGRAM FOR MALIGNANT N EOPLASM OF [place] COMPARISON: Priors dating back to 2013 EXAM PARAMETERS: Views: Standard craniocaudal and mediolateral oblique views of each breast recorded using digital acquisition and breast tomosynthesis. Read with the assistance of CAD. .[facility] - [employer] Version 9.2 LIMITATIONS: None. FINDINGS: No suspicious masses, suspicious calcifications or architectural distortion. No areas of c oncern. IMPRESSION: NEGATIVE MAMMOGRAM. BIRADS 1. BREAST DENSITY: b. There are scattered areas of fibroglandular density. BIRAD: ASSESSMENT: 1 NEGATIVE RECOMMENDATION: ROUTINE SCREENING COMMENT: The patient has been notified of the results by letter per MQSA requirements. Additional no tification policies are in place for contacting patient with suspicious or incomplete findings. Quality ID #225: The [employer] recommends an annual screening mammogram for women aged 40 years or over. This facility utilizes a reminder system to ensure that all patients receive reminder letters, and/or direct phone calls for appointments. This includes reminders for routine scr eening mammograms, diagnostic mammograms, or other Breast Imaging Interventions when appropriate. Th is patient will be placed in the appropriate reminder system. TECHNICAL DOCUMENTATION: FINDING NUMBER: (1) ASSESSMENT: (1) JOB ID: [id number] [employer] All Rights Reserved Reading location - IP/workstation name: [email or web address]
== END ==
LOC: WI 08:30
PROVIDERS: ATTEND Internal Medicine Geriatric Medicine
DX: Z12.31 Encounter for screening mammogram for malignant neoplasm of breast (principal)
CPT/HCPCS: 77063; 77067